=== PATIENT | female | born 1975 | race Hispanic/Latino ===

== ENCOUNTER → 2024-04-29 | Outpatient (CLI) | payer BC ==
[2024-04-29 21:43] VITALS: PULSE 77; RESP 14
[2024-04-29 22:29] VITALS: PULSE 68; RESP 16
[2024-04-29 23:01] VITALS: PULSE 74; RESP 18
[2024-04-29 23:32] VITALS: PULSE 75; RESP 18
[2024-04-30] VITALS (11 sets, daily range): PULSE 62–76; RESP 16–22
== END | disposition home or self-care (01) ==
LOC: SLP 20:23
PROVIDERS: ATTEND Nurse Practitioner Family
DX: G47.33 Obstructive sleep apnea (adult) (pediatric) (principal)
CPT/HCPCS: 95810

== ENCOUNTER → 2024-06-02 | Outpatient (CLI) | payer BC ==
[2024-06-02] VITALS (8 sets, daily range): PULSE 66–76; RESP 11–20
[2024-06-03] VITALS (15 sets, daily range): PULSE 50–68; RESP 8–20
== END | disposition home or self-care (01) ==
LOC: SLP 20:29
PROVIDERS: ATTEND Nurse Practitioner Family
DX: G47.33 Obstructive sleep apnea (adult) (pediatric) (principal)
CPT/HCPCS: 95811